=== PATIENT | female | born 1950 | race Caucasian/White ===

== ENCOUNTER → 2017-01-25 | Outpatient (CLI) | payer SELFPAY ==
--- NOTE | 2017-01-25 12:17 | CT ---
HISTORY: Screening. Cardiac CTA with calcium scoring Technique: Multiple axial images of the chest were obtained on a [address] from the aortic arch to the base of the heart with retrospective cardiac gating. Noncontrast evaluation of th e heart was performed for calcium scoring with prospective gating. Dose reduction techniques includin g Automated Exposure Control (AEC) and adjustment of mA and kV were utilized. Findings: A total calcium score of 0 is observed. The score results in very low likelihood of coronary events given the age and sex matched cohort analysis. Evaluation of the coronary arterial system demonstrates no significant disease of the left main, left circumflex, or LAD. In addition, in no significant disease of the right coronary artery can be iden tified. Extracardiac findings: No pathologically enlarged lymphadenopathy can be observed. The aortic arch is unremarkable in its a ppearance with normal vascular configuration. No significant pericardial effusion can be identified. The visualized portions of the lung parenchyma are unremarkable. No lytic or blastic lesions can b e identified within the visualized bony thorax. The visualized portions of the abdomen demonstrate n ormal perfusion patterns of the spleen and liver. IMPRESSION: Total calcium score of 0 with very low likelihood of coronary artery event. Reported By:
== END ==
LOC: RAD 08:57
PROVIDERS: ATTEND Internal Medicine
DX: Z13.6 Encounter for screening for cardiovascular disorders (principal)